=== PATIENT | female | born 1970 | race Hispanic/Latino ===

== ENCOUNTER 2019-06-16 16:50 | Emergency (ER) | payer BC ==
[2019-06-16 19:06] LABS: POTASSIUM 4.2 mmol/L (3.5-5.1)
[2019-06-16 19:11] LABS: ALBUMIN 3.5 g/dL (3.5-5.0); BILIRUBIN,TOTAL 0.2 mg/dL (0.2-1.0); INR 0.95 (0.85-1.15); PARTIAL THROMBOPLASTIN TIME 28.3 SEC (26.3-35.5); PROTHROMBIN TIME 10.3 SEC (9.6-11.6); TOTAL PROTEIN, SERUM 8.6 g/dL (6.0-8.3)
[2019-06-16 19:17] LABS: BASOPHILS % (AUTO) 0.5 % (0.0-5.0); EOSINOPHILS % (AUTO) 1.9 % (0.0-8.0); LYMPHOCYTES % (AUTO) 16.9 % (21.0-51.0); MEAN CORPUSCULAR HEMOGLOBIN 29.7 pg (27.0-33.0); MEAN CORPUSCULAR VOLUME 90.1 fL (79-99); NEUTROPHILS % (AUTO) 75.1 % (40.0-77.0); PLATELET COUNT (AUTO) 325 K/uL (130-400); RED BLOOD CELL COUNT(AUTO) 4.44 MIL/uL (4.00-5.50); RED CELL DISTRIBUTION WIDTH 13.2 % (11.0-15.5); WHITE BLOOD COUNT (AUTO) 14.5 K/uL (4.8-10.8)
[2019-06-16] MEDS ORDERED: IOHEXOL-350 75 ML VIAL IV ONE (19:29)
== END 2019-06-16 21:13 | disposition home or self-care (01) ==
LOC: EDH 16:50
DX: S63.92XA Sprain of unspecified part of left wrist and hand, initial encounter (principal); S10.93XA Contusion of unspecified part of neck, initial encounter; E11.9 Type 2 diabetes mellitus without complications; I10 Essential (primary) hypertension; E78.00 Pure hypercholesterolemia, unspecified; V59.49XA Driver of pick-up truck or van injured in collision with other motor vehicles in traffic accident, initial encounter; Y93.89 Activity, other specified; Y92.89 Other specified places as the place of occurrence of the external cause; Y99.8 Other external cause status
CPT/HCPCS: 36415; 70498; 73110; 80053; 85025; 85610; 85730; 99285; Q9967